=== PATIENT | female | born 1960 | race African-American/Black ===

== ENCOUNTER 2024-04-22 01:56 | Observation (INO) ==
--- NOTE | 2024-04-22 01:10 | DR.EXTPAIN ---
HPI Time seen Time Seen by Provider: 04/22/24 01:08 EST PMH PMH Past Medical History: Anemia, COPD, Diabetes, Dyslipidemia, GERD, Hypertension, Hypothyroidism and Seizures Past Surgical History: Yes Surgical History: Cholecystectomy, Hysterectomy, Tonsillectomy and Other Family History Family Medical History: Diabetes Mellitus, Cancer, [place], Coronary Artery Disease and Hypertension Social History Do you use any recreational Drugs:: No PE Vital Signs Vitals: Vital Signs Temperature 98.3 F Pulse Rate 122 Pulse Rate 111 Respiratory Rate 18 Respiratory Rate 18 Blood Pressure 148/68 Blood Pressure 137/68 Blood Pressure 151/68 O2 Sat by Pulse Oximetry 96 O2 Sat by Pulse Oximetry 97 ROR Labs Reviewed 04/22/24 01:39 EST 04/22/24 01:39 EST Laboratory: WBC 10.7 X10^3/uL (3.6-10.0) H 04/22/24 01:39 EST RBC 4.98 X10^6/uL (3.5-5.4) 04/22/24 01:39 EST Hgb 14.2 g/dL (12.0-16.0) 04/22/24 01:39 EST Hct 43.7 % (36.0-47.0) 04/22/24 01:39 EST MCV 87.9 fL (80.0-100.0) 04/22/24 01:39 EST MCH 28.6 pg (27.0-34.0) 04/22/24 01:39 EST MCHC 32.6 g/dL (33.0-35.0) L 04/22/24 01:39 EST RDW 14.5 % (11.6-16.5) 04/22/24 01:39 EST Plt Count 223 X10^3/uL (150.0-450.0) 04/22/24 01:39 EST MPV 11.3 fL (7.4-11.0) H 04/22/24 01:39 EST Neut % (Auto) 78.5 % (42.0-75.0) H 04/22/24 01:39 EST Lymph % (Auto) 9.9 % (21.0-51.0) L 04/22/24 01:39 EST [place] % (Auto) 10.6 % (0.0-13.0) 04/22/24 01:39 EST Eos % (Auto) 0.1 % (0.9-2.9) L 04/22/24 01:39 EST Baso % (Auto) 0.9 % (0.2-1.0) 04/22/24 01:39 EST Neut # (Auto) 8.4 x10^3/uL (2.2-4.8) H 04/22/24 01:39 EST Lymph # (Auto) 1.1 X10^3/uL (1.3-2.9) L 04/22/24 01:39 EST [place] # (Auto) 1.1 x10^3/uL (0.3-0.8) H 04/22/24 01:39 EST Eos # (Auto) 0.0 x10^3/uL (0.0-0.2) 04/22/24 01:39 EST Baso # (Auto) 0.1 X10^3/uL (0.0-0.1) 04/22/24 01:39 EST Absolute Nucleated RBC 0.1 /100WBC 04/22/24 01:39 EST Sodium 143 mmol/L (136-145) 04/22/24 01:39 EST Corrected Sodium 146 mmol/L (136-145) H 04/22/24 01:39 EST Potassium 4.0 mmol/L (3.5-5.1) 04/22/24 01:39 EST Chloride 104 mmol/L (98-107) 04/22/24 01:39 EST Carbon Dioxide 24.1 mmol/L (21-32) 04/22/24 01:39 EST BUN 19 mg/dL (7-18) H 04/22/24 01:39 EST Creatinine 1.18 mg/dL (0.55-1.02) H 04/22/24 01:39 EST Est GFR (MDRD) Af Amer 60 (>60) 04/22/24 01:39 EST Est GFR (MDRD) Non-Af 49 (>60) L 04/22/24 01:39 EST Glucose 237 mg/dL (65-99) H 04/22/24 01:39 EST Calcium 9.9 mg/dL (8.5-10.1) 04/22/24 01:39 EST Corrected Calcium TNP 04/22/24 01:39 EST Total Bilirubin 0.50 mg/dL (0.2-1.0) 04/22/24 01:39 EST AST 10 Units/L (15-37) L 04/22/24 01:39 EST ALT 18 Units/L (12-78) 04/22/24 01:39 EST Alkaline Phosphatase 96 Units/L (46-116) 04/22/24 01:39 EST Creatine Kinase 85 Units/L (26-192) 04/22/24 01:39 EST Troponin I High Sens 7.8 ng/L (4.0-60.0) 04/22/24 01:39 EST B-Natriuretic Peptide 22.5 pg/mL (0-79) 04/22/24 01:39 EST Total Protein 9.0 g/dL (6.4-8.2) H 04/22/24 01:39 EST Albumin 3.7 g/dL (3.4-5.0) 04/22/24 01:39 EST Globulin 5.3 g/dL (2.5-4.5) H 04/22/24 01:39 EST Albumin/Globulin Ratio 0.7 Ratio (1.1-2.1) L 04/22/24 01:39 EST Specimen Type Clean catch urine 04/22/24 01:30 EST Urine Color Straw (YELLOW) 04/22/24 01:30 EST Urine Appearance Clear (CLEAR) 04/22/24 01:30 EST Urine pH 5.0 (5.0 - 8.0) 04/22/24 01:30 EST Ur Specific [place] 1.020 (1.000-1.030) 04/22/24 01:30 EST Urine Protein 2+ (NEGATIVE) 04/22/24 01:30 EST Urine Glucose (UA) 4+ (NEGATIVE) 04/22/24 01:30 EST Urine Ketones 3+ (NEGATIVE) 04/22/24 01:30 EST Urine Blood 1+ (NEGATIVE) 04/22/24 01:30 EST Urine Nitrite Negative (NEGATIVE) 04/22/24 01:30 EST Urine Bilirubin Negative (NEGATIVE) 04/22/24 01:30 EST Urine Urobilinogen Normal (NORMAL) 04/22/24 01:30 EST Ur Leukocyte Esterase Negative (NEGATIVE) 04/22/24 01:30 EST Urine RBC 3-5 /HPF (0-3) A 04/22/24 01:30 EST Urine WBC 0-2 /HPF (0-5) 04/22/24 01:30 EST Ur Squamous Epith Cells Few /HPF (NEGATIVE) 04/22/24 01:30 EST Amorphous Sediment 1+ /HPF (NEGATIVE) 04/22/24 01:30 EST Urine Bacteria Trace /HPF (NEGATIVE) 04/22/24 01:30 EST Urine Mucus Few /HPF (NEGATIVE) 04/22/24 01:30 EST Urine Yeast Few /HPF (NEGATIVE) 04/22/24 01:30 EST Ur Culture Indicated? No/not indicated 04/22/24 01:30 EST Opioid Opioid Risk Tool Age (Derek box if 16-45): No History of Preadolescent Sexual Abuse: No Total: 0 Total Score Risk Category: Low Risk Copyright: Anders RICHARDSON predicting aberrant behaviors Discharge Plan Diagnosis Discharge Problem: Cellulitis of left leg, Dehydration, Hyperglycemia Discharge Plan Patient Disposition: HOME, SELF-CARE Condition: Stable Prescriptions: No Action cyclobenzaprine 10 mg tablet PO ropinirole 3 mg tablet 3 mg PO QPM amlodipine 5 mg tablet 5 mg PO QDAY metoclopramide HCl 5 mg tablet 5 mg PO TID pantoprazole 40 mg tablet,delayed release (DR/EC) 40 mg PO QDAY furosemide 20 mg tablet 20 mg PO QDAY oxycodone-acetaminophen 7.5-325 mg tablet PO albuterol sulfate 90 mcg/actuation HFA aerosol inhaler inhalation insulin aspart U-100 [Novolog FlexPen U-100 Insulin] 100 unit/mL (3 mL) insulin pen SUBCUT Patient Comments: [NO ORIGINAL SIG] rosuvastatin 40 mg tablet 40 mg PO QDAY budesonide-formoterol [Symbicort] 160-4.5 mcg/actuation HFA aerosol inhaler inhalation roflumilast 500 mcg tablet 500 mcg PO QDAY Linzess 145 mcg capsule PO Jardiance 25 mg tablet 25 mg PO QDAY Emgality Pen 120 mg/mL pen injector SUBCUT Patient Comments: [NO ORIGINAL SIG] Trelegy Ellipta 200-62.5-25 mcg blister with device 1 ea inhalation QDAY cyclobenzaprine 10 mg tablet 10 mg PO TID levothyroxine 175 mcg tablet 175 mcg PO QDAY tizanidine 4 mg tablet 4 mg PO TID ropinirole 3 mg tablet 3 mg PO QPM potassium chloride 10 mEq tablet extended release 10 meq PO QDAY metronidazole 500 mg tablet 500 mg PO BID Rx Instructions: x 7 days - started on 04/09/24 amlodipine 5 mg tablet 5 mg PO QDAY metoclopramide HCl 5 mg tablet 5 mg PO TID pantoprazole 40 mg tablet,delayed release (DR/EC) 40 mg PO QDAY montelukast 10 mg tablet 10 mg PO QDAY furosemide 20 mg tablet 20 mg PO QDAY oxycodone-acetaminophen 7.5-325 mg tablet 1 tab PO TID PRN albuterol sulfate 90 mcg/actuation HFA aerosol inhaler 1 inh inhalation Q6H PRN olmesartan 20 mg tablet 20 mg PO QDAY rosuvastatin 40 mg tablet 40 mg PO QDAY pregabalin 150 mg capsule 150 mg PO BID brimonidine [Alphagan P] 0.1 % drops 1 drp OPHTHALMIC (EYE) DAILY Patient Comments: [NO ORIGINAL SIG] Rx Instructions: both eyes budesonide-formoterol [Symbicort] 160-4.5 mcg/actuation HFA aerosol inhaler 1 inh inhalation DAILY roflumilast 500 mcg tablet 500 mcg PO QDAY Linzess 145 mcg capsule 145 mcg PO QDAY Jardiance 25 mg tablet 25 mg PO QDAY Bydureon BCise 2 mg/0.85 mL auto-injector 2 mg SUBCUT WEEKLY Patient Comments: [NO ORIGINAL SIG] Emgality Pen 120 mg/mL pen injector 120 mg SUBCUT MONTHLY Patient Comments: [NO ORIGINAL SIG] Trelegy Ellipta 200-62.5-25 mcg blister with device 1 ea inhalation QDAY Health Concerns: Post Hospitalization: new medications and changes needed to prevent readmission or further decline. Pt educated and given instructions on all concerns. Plan of Treatment: Continue with present treatment and follow up plan. Pt is to keep follow up appointment as instructed and take medications as ordered. Orders to Discharge Patient Discharge Orders: Transfer (Routine); Ordered 04/22/24 Ordered By: ASHLEY RODRIGUES Follow ups/Referrals Follow ups/Referrals: JOHNIE,None [Primary Care Provider] - 3 days Instructions Stand Alone Forms: Post Hospital Follow Up Care
[2024-04-22] MEDS: NS 1,000 ML IV 1,000 ML IV SCH (01:47)
--- NOTE | 2024-04-22 01:49 | EKG ---
Test Reason : HTN Blood Pressure : */* mmHG Vent. Rate : 114 BPM Atrial Rate : 114 BPM P-R Int : 172 ms QRS Dur : 78 ms QT Int : 334 ms P-R-T Axes : 54 -7 63 degrees QTc Int : 460 ms Sinus tachycardia Cannot rule out Anterior infarct (cited on or before 15-APR-2024) Abnormal ECG When compared with ECG of 15-APR-2024 08:56, No significant change was found Confirmed by Horacio Bush MD ([id number]) on 04/23/2024 7:50:56 AM Referred By: Confirmed By: Horacio Bush MD
[2024-04-22 01:51] LABS: MEAN PLATELET VOLUME 11.3 fL (7.4-11.0); RED CELL DISTRIBUTION WIDTH 14.5 % (11.6-16.5)
[2024-04-22 02:08] LABS: BLOOD UREA NITROGEN 19 mg/dL (7-18); CALCIUM 9.9 mg/dL (8.5-10.1); CARBON DIOXIDE 24.1 mmol/L (21-32); CHLORIDE 104 mmol/L (98-107); COR NA(FOR HYPERGLY) 146 mmol/L (136-145); CREATININE 1.18 mg/dL (0.55-1.02); GLUCOSE 237 mg/dL (65-99); SODIUM 143 mmol/L (136-145); eGFR NON BLACK RACES 49 (>60)
[2024-04-22 02:10] LABS: BASOPHILS # (AUTO) 0.1 X10^3/uL (0.0-0.1); BASOPHILS % (AUTO) 0.9 % (0.2-1.0); EOSINOPHILS % (AUTO) 0.1 % (0.9-2.9); HEMATOCRIT 43.7 % (36.0-47.0); HEMOGLOBIN 14.2 g/dL (12.0-16.0); LYMPHOCYTES # (AUTO) 1.1 X10^3/uL (1.3-2.9); LYMPHOCYTES % (AUTO) 9.9 % (21.0-51.0); MEAN CORPUSCULAR HEMOGLOBIN 28.6 pg (27.0-34.0); MEAN CORPUSCULAR HGB CONC 32.6 g/dL (33.0-35.0); MEAN CORPUSCULAR VOLUME 87.9 fL (80.0-100.0); MONOCYTES # (AUTO) 1.1 x10^3/uL (0.3-0.8); MONOCYTES % (AUTO) 10.6 % (0.0-13.0); NEUTROPHILS # (AUTO) 8.4 x10^3/uL (2.2-4.8); NEUTROPHILS % (AUTO) 78.5 % (42.0-75.0); PLATELET COUNT 223 X10^3/uL (150.0-450.0); RED BLOOD COUNT 4.98 X10^6/uL (3.5-5.4); WHITE BLOOD COUNT 10.7 X10^3/uL (3.6-10.0)
[2024-04-22 02:11] LABS: BILIRUBIN,URINE NEGATIVE (NEGATIVE); BLOOD/HEMOGLOBIN,URINE 1+ (NEGATIVE); GLUCOSE, URINE 4+ (NEGATIVE); KETONES,URINE 3+ (NEGATIVE); LEUKOCYTE ESTERASE ,URINE NEGATIVE (NEGATIVE); NITRITES,URINE NEGATIVE (NEGATIVE); PROTEIN,URINE 2+ (NEGATIVE); UROBILINOGEN,URINE NORMAL (NORMAL)
[2024-04-22 02:13] LABS: APPEARANCE,URINE CLEAR (CLEAR); COLOR,URINE STRAW (YELLOW)
[2024-04-22 02:17] LABS: CREATINE KINASE 85 Units/L (26-192)
[2024-04-22 02:23] LABS: BACTERIA,URINE TRACE /HPF (NEGATIVE); SQUAMOUS EPITHELIAL CELL,UR FEW /HPF (NEGATIVE)
[2024-04-22 02:24] LABS: YEAST,URINE FEW /HPF (NEGATIVE)
[2024-04-22] MEDS: CLEOCIN 300 MG IV PREMIX 300 MG/50 ML BAG IV ONE ×2 (03:12→09:11)
[2024-04-22 03:36] LABS: ALANINE AMINOTRANSFERASE 18 Units/L (12-78); ALBUMIN 3.7 g/dL (3.4-5.0); ALKALINE PHOSPHATASE 96 Units/L (46-116); ASPARTATE AMINO TRANSFERASE 10 Units/L (15-37)
[2024-04-22] MEDS: PERCOCET TAB 5/325 MG PO ONE (04:12)
[2024-04-22] MEDS ORDERED: ZOFRAN TAB 4 MG PO PRN (04:41)
[2024-04-22] MEDS: PERCOCET TAB 5/325 MG ONE (04:44)
--- NOTE | 2024-04-22 05:48 | VAS ---
EXAM:Duplex ultrasound of left lower extremityHISTORY:LEFT LEG EDEMA;COMPARISON:None.TECHNIQUE:22 images were provided for interpretation.FINDINGS:The left common femoral vein, superficial femoral vein (proximal, mid, distal), and popliteal vein demonstrate compression and augmentation.IMPRESSION:1. There is no evidence of deep venous thrombosis in the visualized portions of the left lower extremity veins.THIS IS AN ELECTRONICALLY VERIFIED FINAL [id number]/22/2024 5:45 AM - Electronically signed by Eliel Ball MD
[2024-04-22 06:03] VITALS: BMI 39.2
[2024-04-22] MEDS: PERCOCET TAB 5/325 MG PO PRN (06:18)
--- NOTE | 2024-04-22 06:24 | RAD ---
EXAM: CHEST, 1 VIEW HISTORY: Shortness of breath COMPARISON: None available. FINDINGS: The trachea is midline. The cardiac silhouette is unremarkable . The lungs are clear without focal infiltrate or effusion. The bony thorax is unremarkable. IMPRESSION: No acute cardiopulmonary disease. THIS IS AN ELECTRONICALLY VERIFIED FINAL REPORT 04/22/2024 6:17 AM - Electronically signed by Jeronimo Lr MD
--- NOTE | 2024-04-22 06:29 | RAD ---
EXAM: SHOULDER, RIGHT HISTORY: Shoulder pain; right shoulder pain x3 days COMPARISON: None available. FINDINGS: The appearance of the clavicle and AC joint are unremarkable. The glenohumeral articulation is normal in its appearance. No acute cortical disruption or dislocation can be identified. The visualized por tions of the scapula are unremarkable. In addition, the visualized portions of the chest appear unrem arkable. IMPRESSION: Negative exam THIS IS AN ELECTRONICALLY VERIFIED FINAL REPORT 04/22/2024 6:26 AM - Electronically signed by Jeronimo Lr MD
[2024-04-22] MEDS: CLEOCIN VIAL 600 MG 300 MG in D5W 50 ML IV 50 ML IV SCH (08:36)
[2024-04-22] MEDS: PULMICORT NEB TX 0.5 MG NEB SCH (09:25)
[2024-04-22] MEDS: PROVENTIL NEB TX 0.083% 2.5MG/ 3ML NEB SCH (09:25)
--- NOTE | 2024-04-22 11:44 | DR.H&P ---
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 She reports noticing these changes for the last few days. She had similar symptoms on the right leg few months ago and was treated outpatient with antibiotics. Er work up showed Venous US which was neg for DVT. Labs showed elevated Cr. CXR and shoulder XR was also done which did not show acute changes. She was started on IV antibiotics and hydration. Labs/imaging reviewed: -WBC 10.7 BUN/Cr 08/07. -US neg for DVT Plan: admit to med-surg. Continue hydration and IV clindamycin, dose adjusted as per pharmacy. Monitor area on the left leg. Replace electrolytes prn. Resume home medications. Add SSI coverage. Continue pain control. Add DVT prophylaxis. Continue nebs prn. Monitor AM labs/imaging. Past Medical History Past Medical History: Anemia, COPD, Diabetes, Dyslipidemia, GERD, Hypertension, Hypothyroidism and Seizures Past Surgical History Surgical History: Cholecystectomy, Hysterectomy and Tonsillectomy Family History Family Medical History: Diabetes Mellitus, Cancer, [place] and Coronary Artery Disease Social History Does patient currently use any type of tobacco product: No Have you used tobacco products in the last 12 months: No Type of Tobacco Use: None Does any household member use tobacco: No Alcohol Use: None Drug Use: None Medications Home Medications: Home Medications Medication Instructions Recorded Confirmed Type albuterol sulfate 90 mcg/actuation 1 inh inhalation Q6H PRN 04/15/24 04/22/24 History aerosol inhaler (Ventolin HFA) Bronchospasm brimonidine 0.1 % eye drops 1 drp ophthalmic (eye) DAILY 04/15/24 04/22/24 History (Alphagan P) empagliflozin 25 mg tablet 25 mg PO QDAY 04/15/24 04/22/24 History (Jardiance) exenatide microspheres 2 mg/0.85 2 mg subcut WEEKLY 04/15/24 04/22/24 History mL subcutaneous auto-injector (Sounder) galcanezumab-gnlm 120 mg/mL 120 mg subcut MONTHLY 04/15/24 04/22/24 History subcutaneous pen injector (Emgality Pen) levothyroxine 175 mcg tablet 175 mcg PO QDAY 04/15/24 04/22/24 History (Synthroid) linaclotide 145 mcg capsule 145 mcg PO QDAY 04/15/24 04/22/24 History (Linzess) montelukast 10 mg tablet 10 mg PO QDAY 04/15/24 04/22/24 History (Singulair) olmesartan 20 mg tablet (Benicar) 20 mg PO QDAY 04/15/24 04/22/24 History potassium chloride 10 mEq 10 meq PO QDAY 04/15/24 04/22/24 History tablet,extended release (Klor-Con) pregabalin 150 mg capsule (Lyrica) 150 mg PO BID 04/15/24 04/22/24 History amlodipine 5 mg tablet (Norvasc) 5 mg PO QDAY 04/22/24 04/22/24 History budesonide-formoterol HFA 160 1 inh inhalation DAILY 04/22/24 04/22/24 History mcg-4.5 mcg/actuation aerosol inhaler (Symbicort) empagliflozin 25 mg tablet 25 mg PO QDAY 04/22/24 04/22/24 History (Jardiance) fluticasone fur. 200 mcg-umeclid 1 ea inhalation QDAY 04/22/24 04/22/24 History 62.5 mcg-vilant 25 mcg inhalat.powder (Trelegy Ellipta) furosemide 20 mg tablet (Lasix) 20 mg PO QDAY 04/22/24 04/22/24 History insulin aspart U-100 100 unit/mL 100 unit subcut DAILY 04/22/24 04/22/24 History (3 mL) subcutaneous pen (Novolog FlexPen U-100 Insulin aspart) metoclopramide HCl 5 mg tablet 5 mg PO TID 04/22/24 04/22/24 History (Reglan) pantoprazole 40 mg tablet,delayed 40 mg PO QDAY 04/22/24 04/22/24 History release roflumilast 500 mcg tablet 500 mcg PO QDAY 04/22/24 04/22/24 History (Daliresp) ropinirole 3 mg tablet 3 mg PO QPM 04/22/24 04/22/24 History rosuvastatin 40 mg tablet (Crestor) 40 mg PO QDAY 04/22/24 04/22/24 History Allergies Allergies Allergy/AdvReac Type Severity Reaction Status Date / Time alcohol Allergy Verified 04/22/24 01:13 EST amoxicillin Allergy Verified 04/22/24 01:13 EST aspirin Allergy Verified 04/22/24 01:13 EST Iodinated Contrast Media Allergy Verified 04/22/24 01:13 EST latex Allergy Verified 04/22/24 01:13 EST rofecoxib [From Vioxx] Allergy Verified 04/22/24 01:14 EST Steroids Allergy Uncoded 04/22/24 01:13 EST Labs 04/22/24 01:39 EST 04/22/24 01:39 EST Labs: Laboratory WBC 10.7 X10^3/uL (3.6-10.0) H 04/22/24 01:39 EST RBC 4.98 X10^6/uL (3.5-5.4) 04/22/24 01:39 EST Hgb 14.2 g/dL (12.0-16.0) 04/22/24 01:39 EST Hct 43.7 % (36.0-47.0) 04/22/24 01:39 EST MCV 87.9 fL (80.0-100.0) 04/22/24 01:39 EST MCH 28.6 pg (27.0-34.0) 04/22/24 01:39 EST MCHC 32.6 g/dL (33.0-35.0) L 04/22/24 01:39 EST RDW 14.5 % (11.6-16.5) 04/22/24 01:39 EST Plt Count 223 X10^3/uL (150.0-450.0) 04/22/24 01:39 EST MPV 11.3 fL (7.4-11.0) H 04/22/24 01:39 EST Neut % (Auto) 78.5 % (42.0-75.0) H 04/22/24 01:39 EST Lymph % (Auto) 9.9 % (21.0-51.0) L 04/22/24 01:39 EST [place] % (Auto) 10.6 % (0.0-13.0) 04/22/24 01:39 EST Eos % (Auto) 0.1 % (0.9-2.9) L 04/22/24 01:39 EST Baso % (Auto) 0.9 % (0.2-1.0) 04/22/24 01:39 EST Neut # (Auto) 8.4 x10^3/uL (2.2-4.8) H 04/22/24 01:39 EST Lymph # (Auto) 1.1 X10^3/uL (1.3-2.9) L 04/22/24 01:39 EST [place] # (Auto) 1.1 x10^3/uL (0.3-0.8) H 04/22/24 01:39 EST Eos # (Auto) 0.0 x10^3/uL (0.0-0.2) 04/22/24 01:39 EST Baso # (Auto) 0.1 X10^3/uL (0.0-0.1) 04/22/24 01:39 EST Absolute Nucleated RBC 0.1 /100WBC 04/22/24 01:39 EST Sodium 143 mmol/L (136-145) 04/22/24 01:39 EST Corrected Sodium 146 mmol/L (136-145) H 04/22/24 01:39 EST Potassium 4.0 mmol/L (3.5-5.1) 04/22/24 01:39 EST Chloride 104 mmol/L (98-107) 04/22/24 01:39 EST Carbon Dioxide 24.1 mmol/L (21-32) 04/22/24 01:39 EST BUN 19 mg/dL (7-18) H 04/22/24 01:39 EST Creatinine 1.18 mg/dL (0.55-1.02) H 04/22/24 01:39 EST Est GFR (MDRD) Af Amer 60 (>60) 04/22/24 01:39 EST Est GFR (MDRD) Non-Af 49 (>60) L 04/22/24 01:39 EST Glucose 237 mg/dL (65-99) H 04/22/24 01:39 EST POC Glucose (mg/dL) 167 mg/dL (65-99) H 04/22/24 11:16 Calcium 9.9 mg/dL (8.5-10.1) 04/22/24 01:39 EST Corrected Calcium TNP 04/22/24 01:39 EST Total Bilirubin 0.50 mg/dL (0.2-1.0) 04/22/24 01:39 EST AST 10 Units/L (15-37) L 04/22/24 01:39 EST ALT 18 Units/L (12-78) 04/22/24 01:39 EST Alkaline Phosphatase 96 Units/L (46-116) 04/22/24 01:39 EST Creatine Kinase 85 Units/L (26-192) 04/22/24 01:39 EST Troponin I High Sens 7.8 ng/L (4.0-60.0) 04/22/24 01:39 EST B-Natriuretic Peptide 22.5 pg/mL (0-79) 04/22/24 01:39 EST Total Protein 9.0 g/dL (6.4-8.2) H 04/22/24 01:39 EST Albumin 3.7 g/dL (3.4-5.0) 04/22/24 01:39 EST Globulin 5.3 g/dL (2.5-4.5) H 04/22/24 01:39 EST Albumin/Globulin Ratio 0.7 Ratio (1.1-2.1) L 04/22/24 01:39 EST Specimen Type Clean catch urine 04/22/24 01:30 EST Urine Color Straw (YELLOW) 04/22/24 01:30 EST Urine Appearance Clear (CLEAR) 04/22/24 01:30 EST Urine pH 5.0 (5.0 - 8.0) 04/22/24 01:30 EST Ur Specific [place] 1.020 (1.000-1.030) 04/22/24 01:30 EST Urine Protein 2+ (NEGATIVE) 04/22/24 01:30 EST Urine Glucose (UA) 4+ (NEGATIVE) 04/22/24 01:30 EST Urine Ketones 3+ (NEGATIVE) 04/22/24 01:30 EST Urine Blood 1+ (NEGATIVE) 04/22/24 01:30 EST Urine Nitrite Negative (NEGATIVE) 04/22/24 01:30 EST Urine Bilirubin Negative (NEGATIVE) 04/22/24 01:30 EST Urine Urobilinogen Normal (NORMAL) 04/22/24 01:30 EST Ur Leukocyte Esterase Negative (NEGATIVE) 04/22/24 01:30 EST Urine RBC 3-5 /HPF (0-3) A 04/22/24 01:30 EST Urine WBC 0-2 /HPF (0-5) 04/22/24 01:30 EST Ur Squamous Epith Cells Few /HPF (NEGATIVE) 04/22/24 01:30 EST Amorphous Sediment 1+ /HPF (NEGATIVE) 04/22/24 01:30 EST Urine Bacteria Trace /HPF (NEGATIVE) 04/22/24 01:30 EST Urine Mucus Few /HPF (NEGATIVE) 04/22/24 01:30 EST Urine Yeast Few /HPF (NEGATIVE) 04/22/24 01:30 EST Ur Culture Indicated? No/not indicated 04/22/24 01:30 EST Review of Systems Constitutional: No Symptoms Reported Eyes: No Symptoms Reported ENT: No Symptoms Reported Respiratory: No Symptoms Reported Cardiovascular: No Symptoms Reported Gastrointestinal: No Symptoms Reported Genitourinary: No Symptoms Reported Musculoskeletal: Leg Pain Skin: See HPI Neurological: No Symptoms Reported Physical Exam Vital Signs: Vital Signs Temperature 98.1 F Pulse Rate [Left Radial] 114 Pulse Rate 122 Respiratory Rate 20 Respiratory Rate 17 Respiratory Rate 17 Blood Pressure [Left Arm] 131/65 Blood Pressure 148/68 O2 Sat by Pulse Oximetry 93 O2 Sat by Pulse Oximetry 96 Oriented: Normal Eyes: Normal Throat: Dry Respiratory: Clear Throughout Cardiovascular: Normal Auscultation: Bowel Sounds: Normal Palpation: Normal Tenderness: Normal Skin: Red, Tender and Other (left leg - erythema noted, mild edema and tenderness ) Musculoskeletal: Leg Psychiatric: Normal Mood Description: Calm Affect: Normal Speech Pattern: Clear and Appropriate Assessment/Plan (1) Cellulitis of left leg: Status: Acute (2) Dehydration: Status: Acute (3) Type 2 diabetes mellitus: Qualifiers: Diabetes mellitus continuous churn buttermaker insulin use: with retirement use Diabetes mellitus complication status: with hyperglycemia Qualified Code(s): E11.65 - Type 2 diabetes mellitus with hyperglycemia; Z79.4 - terminologist (current) use of insulin Status: Chronic (4) HTN (hypertension): Qualifiers: Hypertension type: primary hypertension Qualified Code(s): I10 - Essential (primary) hypertension Status: Chronic (5) Chronic pain: Qualifiers: Chronic pain type: chronic pain syndrome Qualified Code(s): G89.4 - Chronic pain syndrome Status: Chronic (6) Brain injury: Qualifiers: Encounter type: initial encounter Loss of consciousness presence/duration: unknown LOC status Qualified Code(s): S06.9XAA - Unspecified intracranial injury with loss of consciousness status unknown, initial encounter Status: Chronic (7) Seizure disorder: Status: Chronic Review H&P Reviewed: Yes Patient was examined?: Yes
[2024-04-22] MEDS ORDERED: OLMESARTAN 20 MG PO SCH (11:45)
[2024-04-22] MEDS: REGLAN TAB 5 MG PO SCH (13:33)
[2024-04-22] MEDS: BENICAR PO SCH (13:33)
[2024-04-22] MEDS: LOVENOX INJ 40 MG SYR SC SCH (13:34)
[2024-04-22] MEDS: LYRICA CAP 150 mg PO SCH (13:34)
[2024-04-22] MEDS: CLEOCIN 600 MG IV PREMIX 600 MG/50 ML BAG IV SCH (13:34)
[2024-04-22] MEDS: PROTONIX TAB 40 MG PO SCH (13:34)
[2024-04-22] MEDS: DIFLUCAN PO SCH (13:34)
[2024-04-22] MEDS: NORVASC TAB 5 MG PO SCH (13:34)
[2024-04-22] MEDS: BRIMONIDINE 0.1% OP SCH (13:39)
[2024-04-22] MEDS: PROVENTIL NEB TX 0.083% 2.5MG/ 3ML ONE (13:40)
[2024-04-22] MEDS: PULMICORT NEB TX 0.5 MG NEB ONE (13:40)
[2024-04-22] MEDS ORDERED: ROPINIROLE 3 MG PO SCH (21:00)
[2024-04-22] MEDS: REQUIP PO SCH (21:26)
[2024-04-22] MEDS: CRESTOR TAB 10 MG PO SCH (21:27)
[2024-04-22] MEDS: SNACK - Diabetic Appropriate PO SCH (21:28)
[2024-04-22] MEDS: NovoLIN R (or HumuLIN R) SUBCUT PRN (21:42)
[2024-04-23 03:49] VITALS: O2SAT 99
[2024-04-23 06:45] LABS: BASOPHILS # (AUTO) 0.1 X10^3/uL (0.0-0.1); EOSINOPHILS # (AUTO) 0.1 x10^3/uL (0.0-0.2); EOSINOPHILS % (AUTO) 1.1 % (0.9-2.9); HEMATOCRIT 40.2 % (36.0-47.0); LYMPHOCYTES # (AUTO) 1.2 X10^3/uL (1.3-2.9); LYMPHOCYTES % (AUTO) 19.9 % (21.0-51.0); MEAN CORPUSCULAR HEMOGLOBIN 28.9 pg (27.0-34.0); MEAN CORPUSCULAR HGB CONC 32.5 g/dL (33.0-35.0); MEAN CORPUSCULAR VOLUME 89.1 fL (80.0-100.0); MEAN PLATELET VOLUME 11.6 fL (7.4-11.0); MONOCYTES # (AUTO) 0.7 x10^3/uL (0.3-0.8); MONOCYTES % (AUTO) 11.4 % (0.0-13.0); NEUTROPHILS # (AUTO) 4.1 x10^3/uL (2.2-4.8); NEUTROPHILS % (AUTO) 66.6 % (42.0-75.0); PLATELET COUNT 209 X10^3/uL (150.0-450.0); RED BLOOD COUNT 4.51 X10^6/uL (3.5-5.4); RED CELL DISTRIBUTION WIDTH 14.4 % (11.6-16.5); WHITE BLOOD COUNT 6.1 X10^3/uL (3.6-10.0)
[2024-04-23 07:18] LABS: ALANINE AMINOTRANSFERASE 13 Units/L (12-78); ALBUMIN 2.9 g/dL (3.4-5.0); ALKALINE PHOSPHATASE 78 Units/L (46-116); ASPARTATE AMINO TRANSFERASE 6 Units/L (15-37); BLOOD UREA NITROGEN 10 mg/dL (7-18); CALCIUM 9.1 mg/dL (8.5-10.1); CARBON DIOXIDE 24.8 mmol/L (21-32); CHLORIDE 107 mmol/L (98-107); COR NA(FOR HYPERGLY) 145 mmol/L (136-145); CREATININE 0.89 mg/dL (0.55-1.02); GLUCOSE 157 mg/dL (65-99); POTASSIUM 3.8 mmol/L (3.5-5.1); SODIUM 144 mmol/L (136-145); TOTAL PROTEIN 7.8 g/dL (6.4-8.2); eGFR NON BLACK RACES > 60 (>60)
[2024-04-23] MEDS ORDERED: COLACE CAP 100 MG PO PRN (07:59)
[2024-04-23] MEDS ORDERED: MILK OF MAGNESIA PO PRN (07:59)
[2024-04-23] MEDS: LINZESS PO SCH (08:28)
[2024-04-23] MEDS: DALIRESP PO SCH (08:29)
[2024-04-23] MEDS: SYNTHROID 175 mcg TAB PO SCH (08:29)
[2024-04-23] MEDS: LASIX PO SCH (08:29)
[2024-04-23] MEDS ORDERED: BRIMONIDINE 0.1% OP SCH (09:00)
[2024-04-23] MEDS: FARXIGA PO SCH (09:14)
[2024-04-23 09:36] VITALS: BP 127/61; PULSE 106; RESP 20; TEMP 97.8
[2024-04-23] MEDS: VISTARIL PO ONE (10:45)
--- NOTE | 2024-04-30 09:52 | W.DIS.FURT ---
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 She reports noticing these changes for the last few days. She had similar symptoms on the right leg few months ago and was treated outpatient with antibiotics. Er work up showed Venous US which was neg for DVT. Labs showed elevated Cr. CXR and shoulder XR was also done which did not show acute changes. She was started on IV antibiotics and hydration. Her labs were monitored daily and electrolytes replaced as needed. Her left leg did show improvement in the redness and swelling. She was able to ambulate. She was feeling better. She was stable to be discharged home on PO abx. She will f/u with PCP as scheduled. Vital Signs: Vital Signs (72 hours) 04/22/24 01:07 EST 04/22/24 03:17 04/22/24 04:01 Temperature 98.3 F Pulse Rate 111 H 122 H Pulse Rate [Left Radial] Respiratory Rate 18 Blood Pressure 151/68 137/68 148/68 Blood Pressure [Left Arm] Blood Pressure [Right Arm] O2 Sat by Pulse Oximetry 97 96 Oxygen Delivery Method Room Air FIO2% 04/22/24 06:18 04/22/24 05:40 04/22/24 08:00 Temperature 98.1 F Pulse Rate Pulse Rate [Left Radial] 114 H Respiratory Rate 17 20 Blood Pressure Blood Pressure [Left Arm] 131/65 Blood Pressure [Right Arm] O2 Sat by Pulse Oximetry 93 L Oxygen Delivery Method Room Air FIO2% 04/22/24 07:00 04/22/24 07:18 04/22/24 12:00 Temperature 97.8 F Pulse Rate Pulse Rate [Left Radial] 111 H Respiratory Rate 17 20 Blood Pressure Blood Pressure [Left Arm] 130/68 Blood Pressure [Right Arm] O2 Sat by Pulse Oximetry 97 Oxygen Delivery Method Room Air FIO2% 04/22/24 16:00 04/22/24 19:32 04/22/24 19:42 Temperature 98 F 98 F Pulse Rate Pulse Rate [Left Radial] 114 H 107 H Respiratory Rate 20 17 20 Blood Pressure Blood Pressure [Left Arm] 138/73 Blood Pressure [Right Arm] 178/92 O2 Sat by Pulse Oximetry 95 98 Oxygen Delivery Method Room Air FIO2% 04/22/24 20:32 04/22/24 21:15 04/22/24 19:00 Temperature Pulse Rate 100 H Pulse Rate [Left Radial] Respiratory Rate 17 Blood Pressure Blood Pressure [Left Arm] Blood Pressure [Right Arm] O2 Sat by Pulse Oximetry 96 Oxygen Delivery Method Room Air FIO2% 04/22/24 23:49 04/23/24 03:49 04/23/24 07:00 Temperature 97.6 F 97.7 F Pulse Rate Pulse Rate [Left Radial] 99 H 95 H Respiratory Rate 20 22 Blood Pressure Blood Pressure [Left Arm] Blood Pressure [Right Arm] 136/71 144/75 O2 Sat by Pulse Oximetry 98 99 Oxygen Delivery Method Room Air Room Air Room Air FIO2% 04/23/24 08:20 04/23/24 08:20 04/23/24 08:00 Temperature 97.8 F Pulse Rate 95 H Pulse Rate [Left Radial] 106 H Respiratory Rate 20 Blood Pressure Blood Pressure [Left Arm] Blood Pressure [Right Arm] 127/61 O2 Sat by Pulse Oximetry 99 99 Oxygen Delivery Method Room Air Room Air FIO2% 21 Labs: Laboratory Last Values WBC 6.1 X10^3/uL (3.6-10.0) 04/23/24 05:35 RBC 4.51 X10^6/uL (3.5-5.4) 04/23/24 05:35 Hgb 13.0 g/dL (12.0-16.0) 04/23/24 05:35 Hct 40.2 % (36.0-47.0) 04/23/24 05:35 MCV 89.1 fL (80.0-100.0) 04/23/24 05:35 MCH 28.9 pg (27.0-34.0) 04/23/24 05:35 MCHC 32.5 g/dL (33.0-35.0) L 04/23/24 05:35 RDW 14.4 % (11.6-16.5) 04/23/24 05:35 Plt Count 209 X10^3/uL (150.0-450.0) 04/23/24 05:35 MPV 11.6 fL (7.4-11.0) H 04/23/24 05:35 Neut % (Auto) 66.6 % (42.0-75.0) 04/23/24 05:35 Lymph % (Auto) 19.9 % (21.0-51.0) L 04/23/24 05:35 [place] % (Auto) 11.4 % (0.0-13.0) 04/23/24 05:35 Eos % (Auto) 1.1 % (0.9-2.9) 04/23/24 05:35 Baso % (Auto) 1.0 % (0.2-1.0) 04/23/24 05:35 Neut # (Auto) 4.1 x10^3/uL (2.2-4.8) 04/23/24 05:35 Lymph # (Auto) 1.2 X10^3/uL (1.3-2.9) L 04/23/24 05:35 [place] # (Auto) 0.7 x10^3/uL (0.3-0.8) 04/23/24 05:35 Eos # (Auto) 0.1 x10^3/uL (0.0-0.2) 04/23/24 05:35 Baso # (Auto) 0.1 X10^3/uL (0.0-0.1) 04/23/24 05:35 Absolute Nucleated RBC 0.2 /100WBC 04/23/24 05:35 Sodium 144 mmol/L (136-145) 04/23/24 05:35 Corrected Sodium 145 mmol/L (136-145) 04/23/24 05:35 Potassium 3.8 mmol/L (3.5-5.1) 04/23/24 05:35 Chloride 107 mmol/L (98-107) 04/23/24 05:35 Carbon Dioxide 24.8 mmol/L (21-32) 04/23/24 05:35 BUN 10 mg/dL (7-18) 04/23/24 05:35 Creatinine 0.89 mg/dL (0.55-1.02) 04/23/24 05:35 Est GFR (MDRD) Af Amer > 60 (>60) 04/23/24 05:35 Est GFR (MDRD) Non-Af > 60 (>60) 04/23/24 05:35 Glucose 157 mg/dL (65-99) H 04/23/24 05:35 POC Glucose (mg/dL) 125 mg/dL (65-99) H 04/23/24 05:25 Calcium 9.1 mg/dL (8.5-10.1) 04/23/24 05:35 Corrected Calcium 10.0 mg/dL (8.5-10.1) 04/23/24 05:35 Total Bilirubin 0.50 mg/dL (0.2-1.0) 04/23/24 05:35 AST 6 Units/L (15-37) L 04/23/24 05:35 ALT 13 Units/L (12-78) 04/23/24 05:35 Alkaline Phosphatase 78 Units/L (46-116) 04/23/24 05:35 Creatine Kinase 85 Units/L (26-192) 04/22/24 01:39 EST Troponin I High Sens 7.8 ng/L (4.0-60.0) 04/22/24 01:39 EST B-Natriuretic Peptide 22.5 pg/mL (0-79) 04/22/24 01:39 EST Total Protein 7.8 g/dL (6.4-8.2) 04/23/24 05:35 Albumin 2.9 g/dL (3.4-5.0) L 04/23/24 05:35 Globulin 4.9 g/dL (2.5-4.5) H 04/23/24 05:35 Albumin/Globulin Ratio 0.6 Ratio (1.1-2.1) L 04/23/24 05:35 Specimen Type Clean catch urine 04/22/24 01:30 EST Urine Color Straw (YELLOW) 04/22/24 01:30 EST Urine Appearance Clear (CLEAR) 04/22/24 01:30 EST Urine pH 5.0 (5.0 - 8.0) 04/22/24 01:30 EST Ur Specific [place] 1.020 (1.000-1.030) 04/22/24 01:30 EST Urine Protein 2+ (NEGATIVE) 04/22/24 01:30 EST Urine Glucose (UA) 4+ (NEGATIVE) 04/22/24 01:30 EST Urine Ketones 3+ (NEGATIVE) 04/22/24 01:30 EST Urine Blood 1+ (NEGATIVE) 04/22/24 01:30 EST Urine Nitrite Negative (NEGATIVE) 04/22/24 01:30 EST Urine Bilirubin Negative (NEGATIVE) 04/22/24 01:30 EST Urine Urobilinogen Normal (NORMAL) 04/22/24 01:30 EST Ur Leukocyte Esterase Negative (NEGATIVE) 04/22/24 01:30 EST Urine RBC 3-5 /HPF (0-3) A 04/22/24 01:30 EST Urine WBC 0-2 /HPF (0-5) 04/22/24 01:30 EST Ur Squamous Epith Cells Few /HPF (NEGATIVE) 04/22/24 01:30 EST Amorphous Sediment 1+ /HPF (NEGATIVE) 04/22/24 01:30 EST Urine Bacteria Trace /HPF (NEGATIVE) 04/22/24 01:30 EST Urine Mucus Few /HPF (NEGATIVE) 04/22/24 01:30 EST Urine Yeast Few /HPF (NEGATIVE) 04/22/24 01:30 EST Ur Culture Indicated? No/not indicated 04/22/24 01:30 EST Reason For Visit: CELLULITIS LLE, DEHYDRATION, HYPERGLYCEMIA Discharge Diagnosis All Active Problems (Updated 04/22/24 @ 11:43 by Marilee Ramirez MD) Seizure disorder (Chronic) Brain injury (Chronic) Chronic pain (Chronic) HTN (hypertension) (Chronic) Type 2 diabetes mellitus (Chronic) Cellulitis of left leg (Acute) Dehydration (Acute) Hyperglycemia (Acute) Increased frequency of urination (Acute) Nausea (Acute) Constipation (Acute) Abdominal pain (Acute) Plan of Treatment: Continue with present treatment and follow up plan. Pt is to keep follow up appointment as instructed and take medications as ordered. Discharge Medications Discharge Medications: alcohol Allergy (Verified 04/22/24 01:13 EST) amoxicillin Allergy (Verified 04/22/24 01:13 EST) aspirin Allergy (Verified 04/22/24 01:13 EST) Iodinated Contrast Media Allergy (Verified 04/22/24 01:13 EST) latex Allergy (Verified 04/22/24 01:13 EST) rofecoxib [From Vioxx] Allergy (Verified 04/22/24 01:14 EST) Steroids Allergy (Uncoded 04/22/24 01:13 EST) CONTINUE taking the following medications amlodipine 5 mg tablet (Norvasc) 5 mg PO QDAY 04/22/24 [History] budesonide-formoterol HFA 160 mcg-4.5 mcg/actuation aerosol inhaler (Symbicort) 1 inh inhalation DAILY 04/22/24 [History] empagliflozin 25 mg tablet (Jardiance) 25 mg PO QDAY 04/22/24 [History] fluticasone fur. 200 mcg-umeclid 62.5 mcg-vilant 25 mcg inhalat.powder (Trelegy Ellipta) 1 ea inhalation QDAY 04/22/24 [History] furosemide 20 mg tablet (Lasix) 20 mg PO QDAY 04/22/24 [History] insulin aspart U-100 100 unit/mL (3 mL) subcutaneous pen (Novolog FlexPen U-100 Insulin aspart) 100 unit subcut DAILY 04/22/24 [History] metoclopramide HCl 5 mg tablet (Reglan) 5 mg PO TID 04/22/24 [History] pantoprazole 40 mg tablet,delayed release 40 mg PO QDAY 04/22/24 [History] roflumilast 500 mcg tablet (Daliresp) 500 mcg PO QDAY 04/22/24 [History] ropinirole 3 mg tablet 3 mg PO QPM 04/22/24 [History] rosuvastatin 40 mg tablet (Crestor) 40 mg PO QDAY 04/22/24 [History] New Prescriptions clindamycin HCl 300 mg capsule 300 mg PO TID 7 days #21 caps 04/23/24 [Rx] fluconazole 100 mg tablet 100 mg PO DAILY 7 days #7 tabs 04/23/24 [Rx] Discharge Disposition Discharge Disposition: home Discharge Condition: stable Discharge Plan Discharge Plan Hospital Course: Ms Low is a 63y/o female with multiple comorbidities including Type 2 DM, HTN, HLD, GERD, seizure disorder, 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 She reports noticing these changes for the last few days. She had similar symptoms on the right leg few months ago and was treated outpatient with antibiotics. Er work up showed Venous US which was neg for DVT. Labs showed elevated Cr. CXR and shoulder XR was also done which did not show acute changes. She was started on IV antibiotics and hydration. Her labs were monitored daily and electrolytes replaced as needed. Her left leg did show improvement in the redness and swelling. She was able to ambulate. She was feeling better. She was stable to be discharged home on PO abx. She will f/u with PCP as scheduled. Patient Disposition: 01 HOME, SELF-CARE Condition: Stable Health Concerns: Post Hospitalization: new medications and changes needed to prevent readmission or further decline. Pt educated and given instructions on all concerns. Care Plan Goals: Problem: Infection Goal: Temperature within normal limits. Resolved infection. Instructions: Follow provided instructions. Follow up with primary physician as directed. Contact primary care physician or report to the closest Emergency Room if condition worsens. Plan of Treatment: Continue with present treatment and follow up plan. Pt is to keep follow up appointment as instructed and take medications as ordered. Prescription drug monitoring program results: PDMP reviewed and no concerns identified Prescriptions: Continued ropinirole 3 mg tablet 3 mg PO QPM amlodipine [Norvasc] 5 mg tablet 5 mg PO QDAY metoclopramide HCl [Reglan] 5 mg tablet 5 mg PO TID pantoprazole 40 mg tablet,delayed release (DR/EC) 40 mg PO QDAY furosemide [Lasix] 20 mg tablet 20 mg PO QDAY insulin aspart U-100 [Novolog FlexPen U-100 Insulin] 100 unit/mL (3 mL) insulin pen 100 unit SUBCUT DAILY Patient Comments: [NO ORIGINAL SIG] rosuvastatin [Crestor] 40 mg tablet 40 mg PO QDAY budesonide-formoterol [Symbicort] 160-4.5 mcg/actuation HFA aerosol inhaler 1 inh inhalation DAILY roflumilast [Daliresp] 500 mcg tablet 500 mcg PO QDAY Jardiance 25 mg tablet 25 mg PO QDAY Trelegy Ellipta 200-62.5-25 mcg blister with device 1 ea inhalation QDAY levothyroxine [Synthroid] 175 mcg tablet 175 mcg PO QDAY potassium chloride [Klor-Con 10] 10 mEq tablet extended release 10 meq PO QDAY montelukast [Singulair] 10 mg tablet 10 mg PO QDAY albuterol sulfate [Ventolin HFA] 90 mcg/actuation HFA aerosol inhaler 1 inh inhalation Q6H PRN (Reason: Bronchospasm) olmesartan [Benicar] 20 mg tablet 20 mg PO QDAY pregabalin [Lyrica] 150 mg capsule 150 mg PO BID brimonidine [Alphagan P] 0.1 % drops 1 drp OPHTHALMIC (EYE) DAILY Patient Comments: [NO ORIGINAL SIG] Rx Instructions: 1 drop apply to both eyes Linzess 145 mcg capsule 145 mcg PO QDAY Jardiance 25 mg tablet 25 mg PO QDAY Bydureon BCise 2 mg/0.85 mL auto-injector 2 mg SUBCUT WEEKLY Patient Comments: [NO ORIGINAL SIG] Emgality Pen 120 mg/mL pen injector 120 mg SUBCUT MONTHLY Patient Comments: [NO ORIGINAL SIG] Orders to Discharge Patient Discharge Orders: Discharge (Routine); Ordered 04/23/24 Ordered By: Marilee Ramirez Follow ups/Referrals Follow ups/Referrals: [facility] [REFERRING] - 05/01/24 10:00 am Instructions Instructions: Fall Prevention in the Home, Adult, [id number], Hyperglycemia, Dehydration, Adult, [id number], Cellulitis, Adult, [id number], Rehydration, Adult Stand Alone Forms: Post Hospital Follow Up Care
== END 2024-04-23 12:00 | disposition home or self-care (01) ==
LOC: MED/SURG 01:56 → ER 01:56 → MED/SURG 05:17
PROVIDERS: ADMIT Internal Medicine; ATTEND Internal Medicine
DX: Z87.820 Personal history of traumatic brain injury; E78.5 Hyperlipidemia, unspecified; Z79.4 Long term (current) use of insulin; R00.0 Tachycardia, unspecified; E11.65 Type 2 diabetes mellitus with hyperglycemia; M79.7 Fibromyalgia; R06.02 Shortness of breath; R94.31 Abnormal electrocardiogram [ECG] [EKG]; L03.115 Cellulitis of right lower limb; R26.89 Other abnormalities of gait and mobility; R60.0 Localized edema; I10 Essential (primary) hypertension; L03.116 Cellulitis of left lower limb; J44.9 Chronic obstructive pulmonary disease, unspecified; E03.8 Other specified hypothyroidism; K21.9 Gastro-esophageal reflux disease without esophagitis; Z59.89 Other problems related to housing and economic circumstances; Z86.69 Personal history of other diseases of the nervous system and sense organs; M25.511 Pain in right shoulder